=== PATIENT | female | born 1945 | race Caucasian/White ===

== ENCOUNTER 2021-08-26 06:35 | Emergency (ER) | payer MEDICARE ==
[2021-08-26 07:46] VITALS: BP 141/69; PULSE 81
[2021-08-26 08:06] LABS: ESTIMATED GFR 56 mL/min (>60)
== END 2021-08-26 08:25 | disposition home or self-care (01) ==
LOC: LB.ED 06:35
DX: U07.1 COVID-19 (principal); E78.00 Pure hypercholesterolemia, unspecified; I10 Essential (primary) hypertension; E11.9 Type 2 diabetes mellitus without complications; Z88.5 Allergy status to narcotic agent
CPT/HCPCS: 36415; 80053; 84443; 85025; 99281; 99283; U0002

== ENCOUNTER 2022-09-03 12:53 | Observation (INO) | payer MEDICARE ==
[2022-09-03] MEDS ORDERED: Sodium Chloride 0.9% 10 ML Syringe FLUSH PRN (13:13)
[2022-09-03] MEDS ORDERED: Nitroglycerin 0.4 MG Tab.SL ONE (13:29)
[2022-09-03 13:40] LABS: HEMATOCRIT 35.4 % (37.0-47.0); HEMOGLOBIN 11.6 g/dL (11.5-16.5); MEAN CORPUSCULAR HEMOGLOBIN 29.1 pg (27.0-32.0); MEAN CORPUSCULAR HGB CONC 32.8 g/dL (31.0-35.0); MEAN PLATELET VOLUME 11.5 fL (6.0-10.0); RED BLOOD CELL COUNT 3.99 M/uL (3.80-5.80); RED CELL DISTRIBUTION WIDTH 13.8 % (11.0-16.0); WHITE BLOOD CELL COUNT,WBC 6.6 K/uL (4.0-11.0)
[2022-09-03 14:12] LABS: ANION GAP 12.1 mmol/L (5.0-15.0); BUN/CREATININE RATIO 18.1 (6-25); CALCIUM 9.9 mg/dL (8.5-10.1); CARBON DIOXIDE,CO2 27.5 mmol/L (21.0-32.0); CREATININE 1.05 mg/dL (0.55-1.02); EST CRCL DRUG DOSING (CG) 45.02 mL/min; MAGNESIUM 0.8 mg/dL (1.8-2.4); PHOSPHORUS 4.4 mg/dL (2.5-4.9); POTASSIUM,K 4.6 mmol/L (3.5-5.1); TROPONIN I HIGH SENSITIVITY 18.5 pg/ml (<=60.4)
[2022-09-03] MEDS ORDERED: Ketorolac 60 MG/2 ML SDV IVPUSH ONE (15:35)
[2022-09-03] MEDS ORDERED: Ketorolac 30 MG/ML SDV ONE (15:59)
[2022-09-03] MEDS ORDERED: Iopamidol 612 MG/ML 100 ML Bottle IV PRN (18:07)
[2022-09-03] MEDS ORDERED: Sodium Chloride 0.9% 50 ML SDV FLUSH SCH (18:15)
[2022-09-03] MEDS ORDERED: Azithromycin 250 MG Tab ONE (19:00)
[2022-09-03] MEDS ORDERED: Magnesium Oxide 400 MG Tab ONE (19:00)
[2022-09-03] MEDS: Lactated Ringers 1,000 ML IV SCH (20:00)
[2022-09-03] MEDS ORDERED: Clopidogrel 75 MG Tab PO ONE (20:07)
[2022-09-04 07:58] LABS: ANION GAP 12.3 mmol/L (5.0-15.0); BUN/CREATININE RATIO 27.3 (6-25); CALCIUM 9.1 mg/dL (8.5-10.1); CREATININE 0.88 mg/dL (0.55-1.02); EST CRCL DRUG DOSING (CG) 53.71 mL/min; MAGNESIUM 1.1 mg/dL (1.8-2.4); POTASSIUM,K 4.3 mmol/L (3.5-5.1)
[2022-09-04] MEDS: Lactated Ringers 1,000 ML IV SCH (08:22)
[2022-09-04] MEDS ORDERED: Ketorolac 60 MG/2 ML SDV IVPUSH ONE (10:30)
[2022-09-04] MEDS: OMEPRAZOLE 40MG CAPSULE PO SCH (11:11)
[2022-09-04] MEDS: BENAZEPRIL 20MG TABLET PO SCH (11:11)
[2022-09-04] MEDS: CITALOPRAM 20MG TABLET PO SCH (11:12)
[2022-09-04] MEDS: JANUVIA 100MG TABLET PO SCH (11:12)
[2022-09-04] MEDS: GLIPIZIDE 10 MG PO SCH (11:13)
[2022-09-04] MEDS ORDERED: Non-Formulary Medication 1 Each (Glipizide [Glucotrol Xl] 10 MG Tab.Er) PO SCH (12:45)
[2022-09-04] MEDS ORDERED: Non-Formulary Medication 1 Each (Benazepril [Lotensin] 20 MG Tablet) PO SCH (12:45)
[2022-09-04] MEDS ORDERED: metFORMIN 1,000 MG Tab PO SCH (12:45)
[2022-09-04] MEDS ORDERED: Non-Formulary Medication 1 Each (Omeprazole [Omeprazole] 40 MG Cap.Cr) PO SCH (12:45)
[2022-09-04] MEDS: Cyclobenzaprine 5 MG Tab PO SCH ×2 (12:58→20:30)
[2022-09-04] MEDS ORDERED: Oxybutynin 5 MG Tab PO SCH (20:00)
[2022-09-04] MEDS ORDERED: Simvastatin 20 MG Tab PO SCH (20:00)
[2022-09-04] MEDS: traZODone 50 MG Tab PO SCH (20:30)
[2022-09-04] MEDS: SIMVASTATIN 20 MG PO SCH (20:30)
[2022-09-04] MEDS: OXYBUTYNIN 5MG TABLET PO SCH (20:31)
[2022-09-04] MEDS: METFORMIN 1000MG TABLET PO SCH (20:32)
[2022-09-05] MEDS: Lactated Ringers 1,000 ML IV SCH (01:31)
[2022-09-05 07:55] LABS: ANION GAP 14.1 mmol/L (5.0-15.0); BUN/CREATININE RATIO 25.3 (6-25); CALCIUM 8.8 mg/dL (8.5-10.1); CARBON DIOXIDE,CO2 23.7 mmol/L (21.0-32.0); CREATININE 0.79 mg/dL (0.55-1.02); EST CRCL DRUG DOSING (CG) 59.83 mL/min; MAGNESIUM 1.3 mg/dL (1.8-2.4); POTASSIUM,K 4.8 mmol/L (3.5-5.1); TROPONIN I HIGH SENSITIVITY 15.5 pg/ml (<=60.4)
[2022-09-05] MEDS ORDERED: Magnesium Sulfate/Water 2 GM in Premix Bag 1 BAG IV ONE ×2 (07:58→19:43)
[2022-09-05] MEDS ORDERED: Citalopram 20 MG Tab PO SCH (08:00)
[2022-09-05] MEDS ORDERED: SITAGLIPTIN 100 MG PO SCH (08:00)
[2022-09-05] MEDS: BENAZEPRIL 20MG TABLET PO SCH (08:17)
[2022-09-05] MEDS: Cyclobenzaprine 5 MG Tab PO SCH ×2 (08:17→20:36)
[2022-09-05] MEDS: Aspirin 81 MG Tab.Chew PO SCH (08:17)
[2022-09-05] MEDS: JANUVIA 100MG TABLET PO SCH (08:18)
[2022-09-05] MEDS: OMEPRAZOLE 40MG CAPSULE PO SCH (08:18)
[2022-09-05] MEDS: GLIPIZIDE 10 MG PO SCH (08:18)
[2022-09-05] MEDS: CITALOPRAM 20MG TABLET PO SCH (08:18)
[2022-09-05] MEDS: Cyanocobalamin (Vitamin B12) 1,000 MCG Tab PO SCH (08:18)
[2022-09-05] MEDS: OXYBUTYNIN 5MG TABLET PO SCH ×2 (08:18→20:38)
[2022-09-05] MEDS: METFORMIN 1000MG TABLET PO SCH ×2 (08:18→20:38)
[2022-09-05] MEDS ORDERED: Ketorolac 30 MG/ML SDV IVPUSH ONE (18:26)
[2022-09-05] MEDS: Azithromycin 250 MG Tab PO SCH (20:36)
[2022-09-05] MEDS: traZODone 50 MG Tab PO SCH (20:37)
[2022-09-05] MEDS: SIMVASTATIN 20 MG PO SCH (20:38)
[2022-09-06] MEDS: METFORMIN 1000MG TABLET PO SCH (08:04)
[2022-09-06] MEDS: CITALOPRAM 20MG TABLET PO SCH (08:04)
[2022-09-06] MEDS: BENAZEPRIL 20MG TABLET PO SCH (08:04)
[2022-09-06] MEDS: OMEPRAZOLE 40MG CAPSULE PO SCH (08:04)
[2022-09-06] MEDS: Aspirin 81 MG Tab.Chew PO SCH (08:04)
[2022-09-06] MEDS: GLIPIZIDE 10 MG PO SCH (08:04)
[2022-09-06] MEDS: JANUVIA 100MG TABLET PO SCH (08:04)
[2022-09-06] MEDS: Cyanocobalamin (Vitamin B12) 1,000 MCG Tab PO SCH (08:05)
[2022-09-06] MEDS: OXYBUTYNIN 5MG TABLET PO SCH (08:05)
[2022-09-06] MEDS: Azithromycin 250 MG Tab PO SCH (08:05)
[2022-09-06] MEDS ORDERED: Azithromycin 250 MG Tab ONE (11:57)
[2022-09-06 13:05] VITALS: BP 101/66; PULSE 79
== END 2022-09-06 12:55 | disposition home or self-care (01) ==
LOC: LB.ED 12:53 → UNDOADMOB 19:35 → LB.MS 19:35 → UNDOADMOB 19:39 → LB.MS 19:39
PROVIDERS: ADMIT Surgery; ATTEND Surgery
DX: E83.42 Hypomagnesemia (principal); R07.89 Other chest pain; J18.9 Pneumonia, unspecified organism; R09.1 Pleurisy; I10 Essential (primary) hypertension; E78.00 Pure hypercholesterolemia, unspecified; F41.9 Anxiety disorder, unspecified; F32.A Depression, unspecified; J90 Pleural effusion, not elsewhere classified; E11.65 Type 2 diabetes mellitus with hyperglycemia; Z79.899 Other long term (current) drug therapy; Z98.890 Other specified postprocedural states; Z88.5 Allergy status to narcotic agent
CPT/HCPCS: 36415; 71045; 71260; 77066; 80048; 82947; 83735; 84100; 84484; 85027; 85379; 93005; 93010; 96365; 96366; 96375; 96376; 99222; 99232; 99239; 99285-25; A9270-GY; G0279; G0378; J1885; J3475; J3490; J7120; Q9967

== ENCOUNTER 2024-02-16 21:54 | Emergency (ER) | payer MEDICARE ==
[2024-02-16] MEDS ORDERED: Sodium Chloride 0.9% 10 ML Syringe FLUSH PRN (22:19)
[2024-02-16 22:50] LABS: HEMATOCRIT 30.9 % (37.0-47.0); HEMOGLOBIN 9.8 g/dL (11.5-16.5); MEAN CORPUSCULAR HEMOGLOBIN 31.1 pg (27.0-32.0); MEAN CORPUSCULAR HGB CONC 31.7 g/dL (31.0-35.0); MEAN PLATELET VOLUME 10.6 fL (6.0-10.0); RED BLOOD CELL COUNT 3.15 M/uL (3.80-5.80); RED CELL DISTRIBUTION WIDTH 13.4 % (11.0-16.0); WHITE BLOOD CELL COUNT,WBC 7.1 K/uL (4.0-11.0)
[2024-02-16 23:12] LABS: ANION GAP 12.9 mmol/L (5.0-15.0); BUN/CREATININE RATIO 20.2 (6-25); CALCIUM 8.9 mg/dL (8.5-10.1); CARBON DIOXIDE,CO2 26.3 mmol/L (21.0-32.0); CREATININE 1.09 mg/dL (0.55-1.02); EST CRCL DRUG DOSING (CG) 42.7 mL/min; MAGNESIUM 1.4 mg/dL (1.8-2.4); POTASSIUM,K 4.2 mmol/L (3.5-5.1)
[2024-02-17 05:55] VITALS: BP 106/55; PULSE 60
[2024-02-17 07:45] LABS: MAGNESIUM 1.5 mg/dL (1.8-2.4)
[2024-02-17 07:52] LABS: TROPONIN I HIGH SENSITIVITY 129.8 pg/ml (<=60.4)
== END 2024-02-17 09:40 | disposition home or self-care (01) ==
LOC: LB.ED 21:54
DX: T82.897A Other specified complication of cardiac prosthetic devices, implants and grafts, initial encounter (principal); R00.2 Palpitations; E83.42 Hypomagnesemia; I10 Essential (primary) hypertension; E78.00 Pure hypercholesterolemia, unspecified; K21.9 Gastro-esophageal reflux disease without esophagitis; E11.9 Type 2 diabetes mellitus without complications; Z90.49 Acquired absence of other specified parts of digestive tract; Z90.710 Acquired absence of both cervix and uterus; Z79.899 Other long term (current) drug therapy; Z79.84 Long term (current) use of oral hypoglycemic drugs; Z88.5 Allergy status to narcotic agent
CPT/HCPCS: 36415; 71045; 80048; 83735; 84484; 85027; 93005; 93010; 96365; 96366; 99284; 99284-25; J3475